=== PATIENT | female | born 1960 | race Two or more races ===

== ENCOUNTER 2020-07-31 11:57 | Outpatient (CLI) | payer OTHER | END 2020-07-31 12:00 | disposition home or self-care (01) | LOC: SONOGRAMA 11:57 | PROVIDERS: ATTEND Pathology Anatomic Pathology & Clinical Pathology | DX: E04.1 Nontoxic single thyroid nodule (principal) ==

== ENCOUNTER 2023-08-15 09:47 | Outpatient (CLI) | payer OTHER | END 2023-08-15 09:50 | disposition home or self-care (01) | LOC: SONOGRAMA 09:47 | PROVIDERS: ATTEND Pathology Anatomic Pathology & Clinical Pathology | DX: D34 Benign neoplasm of thyroid gland (principal); E07.89 Other specified disorders of thyroid; E04.1 Nontoxic single thyroid nodule ==